=== PATIENT | female | born 1990 | race Caucasian/White ===

== ENCOUNTER 2018-12-08 19:54 | Emergency (ER) | payer OTHER ==
[~2018-12-08] VITALS: Ht 167.6 cm; Wt 63.5 kg
--- NOTE | 2018-12-08 20:58 | NUR ---
PT IN ROOM 5, AWAITING XRAY
--- NOTE | 2018-12-08 21:29 | Diagnostic Imaging Report ---
HAND 3+ VIEWS LEFT HISTORY: Trauma to left hand, fourth digit. COMPARISON: None available. FINDINGS: Bones: Nondisplaced fracture of the fourth metacarpal diaphysis without intra-articular extension. Osseous alignment is within normal limits. Joints: The joint spaces are well-maintained. Soft tissues: The soft tissues appear unremarkable. IMPRESSION: Nondisplaced fracture of the fourth metacarpal diaphysis without intra-articular extension. Signed by: DR. Danyel Espinoza MD on 12/08/2018 9:25 PM
[2018-12-08] MEDS ORDERED: ULTRAM50 MG PO (22:05)
== END 2018-12-08 22:16 | disposition home or self-care (01) ==
LOC: ER 19:54
DX: S62.355A Nondisplaced fracture of shaft of fourth metacarpal bone, left hand, initial encounter for closed fracture (principal); W21.05XA Struck by basketball, initial encounter; Y93.67 Activity, basketball; Y92.488 Other paved roadways as the place of occurrence of the external cause
CPT/HCPCS: 99283